=== PATIENT | female | born 1985 | race Caucasian/White ===

== ENCOUNTER 2020-04-11 07:04 | Outpatient (NON) | payer BC, MEDICAID, SELFPAY ==
[2020-04-13 16:42] LABS: SARS-CoV-2 RNA PCR Positive
== END 2020-04-11 07:05 ==
PROVIDERS: PCP Emergency Medicine; Visit Provider Emergency Medicine
DX: U07.1 COVID-19 (principal)
CPT/HCPCS: 87635; C9803; U0003